=== PATIENT | male | born 1945 | race Caucasian/White ===

== ENCOUNTER 2019-01-01 09:39 | Inpatient (IN) | payer MEDICARE ==
[2019-01-01] VITALS (12 sets, daily range): BP systolic 112–172; BP diastolic 58–75; BMI 29.5
[~2019-01-01] VITALS: Ht 182.9 cm; Wt 98.4 kg
--- NOTE | 2019-01-01 15:38 | NUR ---
1332 ARRIVED VIA AMBULANCE FROM [facility] IN [place]. DR RASHEED AND DR BANUELOS ASSESSING PATIENT
[2019-01-01 16:10] LABS: BASOPHILS 0.1 % (0-2); EOSINOPHILS 0 % (0-7); HEMOGLOBIN 9.4 g/dL (13.5-17.5); IMMATURE GRANULOCYTES 0.8 % (0-5); LYMPHOCYTES 2.5 % (15-50); MCH 26.8 pg (26.0-34.0); MCHC 31.3 g/dL (31.0-37.0); MCV 85.5 fL (80.0-100.0); MEAN PLATELET VOLUME 9.2 fL (7.4-10.4); MONOCYTES 4.9 % (2-11); NEUTROPHILS 91.7 % (40-80); PLATELET COUNT 318 10x3/uL (130-400); RBC 3.51 10x6/uL (4.20-6.10); RDW 17.3 % (11.5-14.5); WBC 18.7 10x3/uL (4.8-10.8)
[2019-01-01 16:22] LABS: ALBUMIN 2.1 g/dL (3.4-5.0); ANION GAP 17.2 mmol/L (8-16); BILIRUBIN - TOTAL 0.38 mg/dL (0.2-1.3); CARBON DIOXIDE 25.8 mmol/L (21.0-32.0); CREATININE - SERUM 7.5 mg/dL (0.6-1.3); PROTEIN - SERUM 5.8 g/dL (6.4-8.2)
[2019-01-01 16:39] LABS: APTT 44.2 SECONDS (22.8-39.4); INR 1.3 (0.85-1.17); PROTIME 15.6 SECONDS (11.6-15.0)
--- NOTE | 2019-01-01 17:29 | NUR ---
1510 STARTED DIALYSIS INITIATED TO RIGHT ARM FISTULA
--- NOTE | 2019-01-01 18:28 | NUR ---
1710 UNABLE TO ASSESS HISTORY. NO FAMILY MEMBERS PRESENT. PATIENT UNRESPONSIVE
--- NOTE | 2019-01-01 18:30 | NUR ---
1809 DIALYSIS COMPLETE REMOVED 1.5 LITERS PER LEXIE TORRES OF [place]
[2019-01-01] MEDS ORDERED: CELEXA40 MG PO (18:44)
[2019-01-01] MEDS ORDERED: LEVOTHYROXINE200 MCG PO (18:45)
[2019-01-01] MEDS ORDERED: CARAFATE1 G PO (18:46)
[2019-01-01] MEDS ORDERED: PROTONIX40 MG PO (18:47)
[2019-01-01] MEDS ORDERED: MERREM 1 GM/NS 11 G1 (18:47)
[2019-01-01] MEDS ORDERED: PULMICORT0.5 MG/21 (18:48)
[2019-01-01] MEDS ORDERED: IPRAT-ALBUT 0.5-3 ML (18:48)
[2019-01-01] MEDS ORDERED: CIPRO500 MG (18:49)
[2019-01-01] MEDS ORDERED: AMBIEN5 MG PO (18:49)
[2019-01-01] MEDS ORDERED: NEURONTIN 300300 MG (18:50)
[2019-01-01] MEDS ORDERED: HYDROCODON-ACE1 EAC7 (18:50)
[2019-01-01] MEDS ORDERED: ZANAFLEX4 MG PO (18:52)
[2019-01-01] MEDS ORDERED: CEFUROXIME500 MG (18:53)
[2019-01-01] MEDS ORDERED: ZYVOX600 MG (18:54)
[2019-01-01] MEDS ORDERED: INVANZ 1 GM/NS 11 G1 (18:55)
[2019-01-01] MEDS ORDERED: FERROUS SULFAT325 MG PO (18:56)
[2019-01-01] MEDS ORDERED: NYAMYC60 GM TP (18:56)
[2019-01-01] MEDS ORDERED: MIDODRINE HCL5 MG PO (18:57)
[2019-01-01] MEDS ORDERED: PROSCAR5 MG PO (18:58)
[2019-01-01] MEDS ORDERED: SANTYL30 GM (18:58)
[2019-01-01] MEDS ORDERED: FLOMAX0.4 MG PO (18:58)
[2019-01-01] MEDS ORDERED: HEPARIN SO1000 UNIT/ IV (18:59)
[2019-01-01] MEDS ORDERED: MIDODRINE HCL2.5 MG (19:00)
[2019-01-01] MEDS ORDERED: NORVASC5 MG (19:00)
[2019-01-01] MEDS ORDERED: RENA-VITE TABL0.8 MG (19:01)
[2019-01-01] MEDS ORDERED: RENVELA800 MG (19:01)
[2019-01-01] MEDS ORDERED: ACEROLA C500 MG PO (19:04)
[2019-01-01] MEDS ORDERED: EPOGEN3000 U/ML (19:17)
[2019-01-01] MEDS ORDERED: CENTRUM COMPLE1 EACH PO (19:17)
[2019-01-01] MEDS ORDERED: CATAPRES0.1 MG PO (19:27)
[2019-01-01] MEDS ORDERED: CLOTRIM ANTIFUN15 GM TOPICAL (19:28)
[2019-01-01] MEDS ORDERED: BOUDREAUXS BUTT60 GM TOPICAL (19:29)
[2019-01-02] VITALS (24 sets, daily range): BP systolic 118–175; BP diastolic 50–73
--- NOTE | 2019-01-02 01:22 | NUR ---
1900 PT ASSESSMENT COMPLETED AT THIS TIME. PT IS UNRESPONSIVE. VSS, WILL MONITOR FOR CHANGES. 2100 VSS, NO CHANGES IN PT COND. 2300 PT REASSESSMENT COMPLETED AT THIS TIME. PT'S HR WAS NOTED TO BE A-FIB RATE OF 103-106, DR. RASHEED WAS CALLED AND NEW ORDERS NOTED. 0040 PT'S HR INCREASED TO 112-120, PT WAS GIVEN PRN LOPRESSOR AT THIS TIME. 0100 PT'S HR NOTED TO BE 88 A-FIB, NO CHANGES IN PT'S COND.
--- NOTE | 2019-01-02 03:31 | NUR ---
KAREN PAGED DUE TO TEMP OF 103.2
--- NOTE | 2019-01-02 03:40 | NUR ---
RYAN FLOWERS APN RETURNED CALL AND NEW ORDERS NOTED
--- NOTE | 2019-01-02 04:20 | NUR ---
COWAN PLACED USING STERILE TECHNIQUE, CLOUDY YELLOW URINE NOTED TO DRAIN TUBE. STAT LOCK SECURED TO PT RIGHT THIGH.
[2019-01-02 04:42] LABS: BASOPHILS 0 % (0-2); EOSINOPHILS 0 % (0-7); HEMATOCRIT 32.2 % (42.0-54.0); HEMOGLOBIN 9.9 g/dL (13.5-17.5); IMMATURE GRANULOCYTES 0.4 % (0-5); LYMPHOCYTES 6.9 % (15-50); MCH 26.7 pg (26.0-34.0); MCHC 30.7 g/dL (31.0-37.0); MCV 86.8 fL (80.0-100.0); MEAN PLATELET VOLUME 9.7 fL (7.4-10.4); MONOCYTES 4.7 % (2-11); PLATELET COUNT 317 10x3/uL (130-400); RBC 3.71 10x6/uL (4.20-6.10); RDW 17.6 % (11.5-14.5); WBC 12.2 10x3/uL (4.8-10.8)
[2019-01-02 05:02] LABS: ANION GAP 16.7 mmol/L (8-16); CALCIUM 8.1 mg/dL (8.5-10.1); CARBON DIOXIDE 27.3 mmol/L (21.0-32.0); PHOSPHOROUS 5.5 mg/dL (2.5-4.9)
--- NOTE | 2019-01-02 05:02 | NUR ---
KAREN WAS PAGED DUE TO INCREASING TEMP.
--- NOTE | 2019-01-02 05:10 | NUR ---
RYAN FLOWERS APN RETURNED CALL, NO NEW ORDERS NOTED. ADVISED THAT SHE WAS GOING TO TALK TO DR. BANUELOS AND HAVE HIM CALL BACK
[2019-01-02 05:39] LABS: APPEARANCE TURBID (CLEAR); BACTERIA MANY /hpf (NONE SEEN); BILIRUBIN NEGATIVE (NEGATIVE); COLOR YELLOW (YELLOW); EPITHELIAL CELLS RARE /hpf (0-5); GLUCOSE NEGATIVE (NEGATIVE); KETONE SMALL mg/dL (NEGATIVE); NITRITE NEGATIVE (NEGATIVE); PROTEIN 2+ mg/dL (NEGATIVE); SPECIFIC GRAVITY 1.015 (1.005-1.020); UROBILINOGEN NORMAL (NORMAL); WHITE CELLS - URINE >50 /hpf (0-5)
--- NOTE | 2019-01-02 06:08 | NUR ---
SPOKE WITH DR. CENTENO, NEW ORDERS NOTED
--- NOTE | 2019-01-02 11:25 | NUR ---
0700 AWAKE ALERT ORIENTED NO C/O PAIN ASSWESSMENT COMPLETE
--- NOTE | 2019-01-02 11:26 | NUR ---
0900 CLEAR LIQUID DIET PROVIDED PATIENT INFORMED RN THAT SHE WAS VEGAN. NEW ORDER WRITTEN TO ALLOW FOR VEGAN DIET
--- NOTE | 2019-01-02 11:27 | NUR ---
1100 DR CENTENO CONSULTED AND ROUNDING ON PATIENT
--- NOTE | 2019-01-02 15:33 | NUR ---
1300 DR SARMIENTO REMOVED LEFT SUB CLAVIAN CENTRAL AND REPLACED WITH LEFT SC TRIALYSIS SITE SATISFACTORY
--- NOTE | 2019-01-02 15:35 | NUR ---
1400 DR BANUELOS ROUNDING ON PT WAITING ON BRAIN SCAN RESULTS FROM TEST DONE THIS AM
--- NOTE | 2019-01-02 15:47 | NUR ---
1545 NEW ORDERS TAKEN FROM DR RASHEED FOR AMP BICARB AND AMP CACL AND BMP
[2019-01-02 17:44] LABS: ANION GAP 12.4 mmol/L (8-16); CALCIUM 8.7 mg/dL (8.5-10.1); CARBON DIOXIDE 30.5 mmol/L (21.0-32.0); CREATININE - SERUM 6.7 mg/dL (0.6-1.3); POTASSIUM - SERUM 5.9 mmol/L (3.5-5.1)
--- NOTE | 2019-01-02 17:47 | NUR ---
1727 BMP DRAWN AND SENT TO LAB ASKED STAFF TO PROCESS STAT
--- NOTE | 2019-01-02 17:53 | NUR ---
1552 BMP RESULTS CALLED TO DR RASHEED WHO STATED NO DIALYSIS TONIGHT FOR THIS PATIENT
--- NOTE | 2019-01-02 18:26 | NUR ---
175 BMP RESULTS CALLED TO DR RASHEED STATED NO DIALYSIS INDICATED TONIGHT
--- NOTE | 2019-01-02 19:00 | NUR ---
REPORT RECEIVED. RECEIVED PATIENT IN BED. PATIENT UNRESPONSIVE/VENTILATED VIA TRACH. TRACH SECURE/PATENT. OGT INTACT, SECURE, PATENT WITH PLACEMENT VERIFIED PER AUSCULTATION. HOB UP 30 DEGREES. MONITORS CONNECTED TO PATIENT WITH ALARMS SET. VSS
[2019-01-03] VITALS (12 sets, daily range): BP systolic 97–150; BP diastolic 35–63; Ht 182.9 cm; Wt 98.4 kg
--- NOTE | 2019-01-03 04:09 | NUR ---
PT REPOSITIONED. HEELS OFF BED. DRESSING TO RIGHT ARM CDI.
[2019-01-03 04:41] LABS: HEMATOCRIT 29.1 % (42.0-54.0); HEMOGLOBIN 8.6 g/dL (13.5-17.5); MCH 26.5 pg (26.0-34.0); MCHC 29.6 g/dL (31.0-37.0); MEAN PLATELET VOLUME 9.6 fL (7.4-10.4); PLATELET COUNT 273 10x3/uL (130-400); RBC 3.25 10x6/uL (4.20-6.10); RDW 17.5 % (11.5-14.5); WBC 10.1 10x3/uL (4.8-10.8)
[2019-01-03 04:52] LABS: MCV 89.5 fL (80.0-100.0)
[2019-01-03 05:17] LABS: ANION GAP 12.9 mmol/L (8-16); CALCIUM 7.9 mg/dL (8.5-10.1); CARBON DIOXIDE 30.5 mmol/L (21.0-32.0); CREATININE - SERUM 7.5 mg/dL (0.6-1.3); PHOSPHOROUS 6.5 mg/dL (2.5-4.9); VANCOMYCIN - RANDOM 17.8 ug/mL (10.0-20.0)
[2019-01-03 05:21] LABS: POTASSIUM - SERUM 6.4 mmol/L (3.5-5.1)
--- NOTE | 2019-01-03 05:24 | NUR ---
RIGHT ARM ELEVATED AND PLACED PAD UNDERNEATH. WEEPING EDEMA UA. SATURATED DRESSING REMOVED
[2019-01-03 05:34] LABS: ANISOCYTOSIS 1+; HYPOCHROMASIA 1+; LYMPHOCYTES 30 % (15-50); MONOCYTES 7 % (2-11); NEUTROPHILS 62 % (40-80); PLATELET ESTIMATE NORMAL; POIKILOCYTOSIS 1+
--- NOTE | 2019-01-03 06:15 | NUR ---
SPOKE WITH DR. RASHEED, REPORTED K+N 6.4. NEW ORDERS RECEIVED
--- NOTE | 2019-01-03 08:05 | NUR ---
0700 ASSESSMENT COMPLETE WET TO DRY DRESSING CHANGE T0 STAGE 4 PRESSURE ULCER TO COCCYX RN NAME PLACED ON WHITE BOARD REPOSITIONED WITH PILLOW SUPPORT
--- NOTE | 2019-01-03 09:44 | NUR ---
0900 STEPSON AT BEDSIDE EMOTIONAL SUPPORT GIVEN DR RASHEED UPDATING AND ANSWERING QUESTIONS
--- NOTE | 2019-01-03 12:46 | NUR ---
1208 SPOUSE AND FRIENDS ARRIVED TO BEDSIDE EMOTIONAL SUPPORT GIVEN DR BANUELOS ARRIVED GIVE UPDATE ON PATIENTS CONDITION MD ANSWERING ALL SPOUSE QUESTIONS.
--- NOTE | 2019-01-03 13:36 | NUR ---
119 DILAUDID 2MG GIVEN IV SPOUSE REMAINS AT BEDSIDE.
--- NOTE | 2019-01-03 15:19 | MORECARE ---
CASE MANAGEMENT DISCHARGE SUMMARY PATIENT: BEATRIZ BERRY UNIT: [id number] ADM DATE: 01/01/19 AGE: 73 : 45 SEX: M ROOM/BED: D.2310 AUTHOR: SULEIMAN ARMSTRONG PHYSICIAN: REFERRING PHYSICIAN: LAURA BANUELOS MD DATE OF SERVICE: 01/03/19 Discharge Plan Patient Name: BEATRIZ BERRY [facility] [facility] 1945 Planned Disposition: Anticipated Discharge Date: Discharge Date: Expected LOS: Initial Reviewer: [email or web address] Initial Review Date: 01/01/2019 Generated: 01/03/19 4:19 pm Patient Name: BEATRIZ BERRY Page [id number] at 1519 All edits/amendments must be made on the electronic document DICTATION DATE: 01/03/19 1519 CONTINUITY WRITER: SHARATH 01/03/19 1519 RPT#: [id number] DC DATE: STATUS: ADM IN [facility] [address] [place] [address] END OF REPORT
--- NOTE | 2019-01-03 15:32 | NUR ---
1319 DILAUDID 2MG IV GIVEN PRIOR TO TERMINAL EXTUBATION
--- NOTE | 2019-01-03 15:33 | NUR ---
1422 FAMILY AT BEDSIDE
--- NOTE | 2019-01-03 15:35 | NUR ---
1510 POST MORTUM CARE COMPLETE DENTURES IN BAG ON BED TO GO WITH PT TO HOME
--- NOTE | 2019-01-03 15:35 | MORECARE ---
CASE MANAGEMENT DISCHARGE SUMMARY PATIENT: BEATRIZ BERRY UNIT: [id number] ADM DATE: 01/01/19 AGE: 73 : 45 SEX: M ROOM/BED: D.2310 AUTHOR: SULEIMAN ARMSTRONG PHYSICIAN: REFERRING PHYSICIAN: LAURA SIBLEY MD DATE OF SERVICE: 01/03/19 Discharge Plan Patient Name: EBATRIZ BERRY Facility: [facility]:[place] : 1945 Planned Disposition: Anticipated Discharge Date: Discharge Date: Expected LOS: Initial Reviewer: [email or web address] Initial Review Date: 01/01/2019 Generated: 01/03/19 4:35 pm Comments DCP- Discharge Planning Updated by [email or web address]: Dang Griffin on 01/03/19 2:[address] Patient Name: BEATRIZ BERRY Admission Status: Elective Accout number: [id number] Admission Date: 01-01-2019 : 1945 Admission Diagnosis: Attending: LAURA SIBLEY Current LOS: 2 Anticipated DC Date: Planned Disposition: Primary Insurance: MEDICARE A & B Discharge Planning Comments: Family have met with Dr. Sibley and plans are for a terminal extubation later today. CM spoke to see if she is in need of anything at this time. CM will continue to follow and assist as needed with discharge planning / needs. Answerer: Dang Griffin Last DP export: 01/03/19 2:19 pm Patient Name: BEATRIZ BERRY Page [phone] at 1535 All edits/amendments must be made on the electronic document DICTATION DATE: 01/03/19 1535 STORM CHASER: SHARATH 01/03/19 1535 RPT#: [id number] DC DATE: STATUS: ADM IN [facility] [id number] [place] [address] END OF REPORT
--- NOTE | 2019-01-03 18:03 | NUR ---
home here for pt
--- NOTE | 2019-01-03 18:31 | MORECARE ---
CASE MANAGEMENT DISCHARGE SUMMARY PATIENT: BEATRIZ BERRY UNIT: [id number] ADM DATE: 01/01/19 AGE: 73 : 45 SEX: M ROOM/BED: D.2310 AUTHOR: SULEIMAN ARMSTRONG PHYSICIAN: REFERRING PHYSICIAN: LAURA SIBLEY MD DATE OF SERVICE: 01/03/19 Discharge Plan Patient Name: BEATRIZ BERRY [facility] [facility] 1945 Planned Disposition: Anticipated Discharge Date: Discharge Date: 01/03/2019 Expected LOS: Initial Reviewer: [email or web address] Initial Review Date: 01/01/2019 Generated: 01/03/19 7:30 pm Comments DCP- Discharge Planning Updated by [email or web address]: Dang Griffin on 01/03/19 2:[address] Patient Name: BEATRIZ BERRY Admission Status: Elective Accout number: [id number] Admission Date: 01-01-2019 : 1945 Admission Diagnosis: Attending: LAURA SIBLEY Current LOS: 2 Anticipated DC Date: Planned Disposition: Primary Insurance: MEDICARE A & B Discharge Planning Comments: Family have met with Dr. Sibley and plans are for a terminal extubation later today. CM spoke to see if she is in need of anything at this time. CM will continue to follow and assist as needed with discharge planning / needs. Hands Assembler: Dang Griffin Last DP export: 01/03/19 2:35 pm Patient Name: BEATRIZ BERRY Page [phone] at 1831 All edits/amendments must be made on the electronic document DICTATION DATE: 01/03/19 183 SENIOR QUALITY MANAGER: SHARATH 01/03/19 183 RPT#: [id number] DC DATE:01/03/19 STATUS: DIS IN [facility] [address] [place] [address] END OF REPORT
== END 2019-01-03 12:47 | DRG 682 ==
LOC: D.ICU 09:39
PROVIDERS: Family Medicine; Internal Medicine Nephrology; ADMIT Internal Medicine Nephrology; ATTEND Internal Medicine Nephrology
PROC: 5A1945Z Respiratory Ventilation, 24-96 Consecutive Hours (ICD-10-PCS; principal; 2019-01-01)
PROC: 05H633Z Insertion of Infusion Device into Left Subclavian Vein, Percutaneous Approach (ICD-10-PCS; 2019-01-03)
DX: N18.6 End stage renal disease (principal); J96.00 Acute respiratory failure, unspecified whether with hypoxia or hypercapnia; A41.9 Sepsis, unspecified organism; L89.154 Pressure ulcer of sacral region, stage 4; R40.2312 Coma scale, best motor response, none, at arrival to emergency department; R40.2112 Coma scale, eyes open, never, at arrival to emergency department; R40.2212 Coma scale, best verbal response, none, at arrival to emergency department; G93.1 Anoxic brain damage, not elsewhere classified; N39.0 Urinary tract infection, site not specified; T82.858A Stenosis of other vascular prosthetic devices, implants and grafts, initial encounter; I46.9 Cardiac arrest, cause unspecified; Z89.511 Acquired absence of right leg below knee; D63.1 Anemia in chronic kidney disease; E03.9 Hypothyroidism, unspecified; C32.9 Malignant neoplasm of larynx, unspecified; Z66 Do not resuscitate; E87.5 Hyperkalemia; N40.0 Benign prostatic hyperplasia without lower urinary tract symptoms; K21.9 Gastro-esophageal reflux disease without esophagitis; Z93.0 Tracheostomy status; Y83.9 Surgical procedure, unspecified as the cause of abnormal reaction of the patient, or of later complication, without mention of misadventure at the time of the procedure